=== PATIENT | male | born 1950 | race Caucasian/White ===

== ENCOUNTER 2017-08-11 11:14 | Outpatient (CLI) | payer MEDICARE ==
[~2017-08-11] VITALS: Ht 177.8 cm; Wt 102.3 kg
--- NOTE | ~2017-08-11 | HP ---
PATIENT: UBALDO VIGIL MEDICAL RECORD: [id number] ACCOUNT: [id number] LOCATION:BETH : 50 ADMISSION DATE: 08/11/17 HISTORY AND PHYSICAL EXAMINATION ADDENDUM A 67-year-old gentleman initially seen in the office, underwent nuclear stress testing that showed reversible inferior changes. He is being brought as an outpatient for angiography. Please see original H&P for full details. This is merely an update. He has had no change in symptomatology. He continues with dyspnea on exertion/angina. TRANSINT:[id number] Voice Confirmation ID: [id number] DOCUMENT ID: [id number] KATI CHAVES MD at 1318 CC: [id number] DICTATION DATE: 08/11/17 1328 CHEF DE FROID: 08/11/17 1350 DEP CLI 08/11/17 [id number] [place] [address]
--- NOTE | ~2017-08-11 | OP ---
PATIENT NAME: UBALDO VIGIL MEDICAL RECORD: [id number] :50 LOCATION:D.CAT ADMISSION DATE: SURGEON: KAIT CHAVES MD DATE OF OPERATION: 08/11/2017 PROCEDURE: Left heart catheterization, selective coronary angiography, right radial approach. CATHETERS: A 5-[place] sheath, 5/4 left and right Huber, 5/4 pig. The procedure was well tolerated and the patient returned to the perdomo, sheath removed, a TR band was placed. FINDINGS: Left ventriculography in 30-degree HINOJOSA view: Normal wall motion, normal systolic function. CORONARY ANATOMY. LEFT MAIN: Left main is free of disease. LAD: Free of disease in the diagonal system. CIRCUMFLEX: Free of disease in the marginal system. RIGHT CORONARY ARTERY: Dominant artery, gives rise to PDA, free of disease. IMPRESSION: Normal systolic function. Normal coronary anatomy. TRANSINT:[id number] Voice Confirmation ID: [id number] DOCUMENT ID: [id number] KAIT CHAVES MD at 1318 CC: [id number] DICTATION DATE: 08/11/17 1411 STEAM SHOVEL OPERATING ENGINEER: 08/11/17 1424 DEP CLI 08/11/17 [facility] [address] [place] [address]
--- NOTE | ~2017-08-11 | HEMODYNAMI ---
PATIENT:UBALDO VIGIL MEDICAL RECORD: [id number] : 50 LOCATION:DDEBI ADMISSION DATE: 08/11/17 Generatedon:08/11/201714:05 Patient name: UBALDO VIGIL Patient #: [id number] SSN: : 1950 Date of study: 08/11/2017 Page: Of Hemodynamic Procedure Report Patient Data Patient Demographics Procedure consent was obtained First Name: UBALDO Gender: Male Last Name: YARITZA : 1950 [facility] Initial: FRED Age: 67 year(s) Patient #: [id number] Race: Unknown Additional ID: [id number] Contact details [address]: [address] [place] [address] State: [place] City: [place] Zip code: [address] Past Medical History Allergies Allergen Reaction Date Comments Reported Iodine 08/11/2017 Admission Admission Data Admission Date: 08/11/2017 Admission Time: 11:14 Procedure Procedure Types Cath Procedure Diagnostic Procedure LHC LHC w/Coronaries Miscellaneous Procedures Moderate Sedation up to 15 minutes Procedure Description Procedure Date Procedure Date: 08/11/2017 Procedure Start Time: 13:56 Procedure End Time: 14:05 Procedure Staff Name Function Ramón Gutierrez MD Performing Physician Geno Peraza RT Monitor Ingrid Oneal RT Scrub Paul Snowden RN Nurse Procedure Data Cath Procedure Fluoroscopy Diagnostic fluoroscopy Total fluoroscopy Time: 1.7 time: 1.7 min min Diagnostic fluoroscopy Total fluoroscopy dose: 631 dose: 631 mGy mGy Contrast Material Contrast Material Type Amount (ml) Isovue 300 54 Entry Location Entry Primary Successful Side Size Upsize Upsize Entry Closure Daugherty ccessful Closure Location (Fr) 1 (Fr) 2 (Fr) Remarks Device Remarks Radial Right 6 Fr Mechanical artery Short Compression Estimated blood loss: 5 ml Diagnostic catheters Device Type Used For End Catheter Placement DIAGNOSTIC Gunlock 110cm 5 LV Angiography Fr catheter ([id number]) DIAGNOSTIC Gunlock 110cm 5 Left Coronary Fr catheter (797681) Angiography DIAGNOSTIC Gunlock 110cm 5 Right Coronary Fr catheter (986550) Angiography Procedure Complications No complications Procedure Medications Medication Administration Route Dosage 0.9% NaCl I.V. 100 ml/hr Oxygen NC 2 l/min Heparin Flush Bag added to field 2 bags (1000units/500ml NS) Lidocaine 2% 20 Radial Cocktail added to field (Verapomil 2mg/Nitro 400mcg/Heparin 1500units) Benadryl I.V. 50 mg Versed I.V. 1 mg Fentanyl I.V. 50 mcg Radial Cocktail I.A. (Verapomil 2mg/Nitro 400mcg/Heparin 1500units) Hemodynamics Rest Heart Rate: 90 (bpm) Pressure Samples Time Site Value (mmHg) Purpose Heart Use Rate(bpm) 13:59 LV 130/9,11 EDP 90 13:59 AO 127/81(103) Pullback 92 13:59 LV 126/11,14 Pullback 92 Gradients Valve Time Site 1 Site 2 Mean SEP/DFP Peak To Heart Use (mmHg) (sec/min) Peak Rate (mmHg) (bpm) Aortic 13:59 LV AO 0 7 0 92 126/11,14 127/81(103) Calculations Valve P-P Mean Valve Index Valve Source Name Gradient Area Flow (cm2) Aortic 0 0 0 0 Snapshots Pre Cath Intra NCS Post Cath Vital Signs Time Heart Resp SPO2 etCO2 NIBP (mmHg) Rhythm Pain Sedation Rate (ipm) (%) (mmHg) Status Level (bpm) 13:49:58 82 14 95 36.9 152/89(123) NSR 0 (11) 10(A) , No pain 13:54:41 84 13 94 35.4 150/83(121) NSR 0 (11) 10(A) , No pain 13:59:24 90 15 93 30.9 134/74(99) NSR 0 (11) 9(A) , No pain 14:04:02 93 16 93 30.1 132/79(97) NSR 0 (11) 9(A) , No pain Medications Time Medication Route Dose Verified Delivered Reason Notes Ef fectiveness by by 13:51:46 0.9% NaCl I.V. 100 Paul Paul Per ml/hr Sp luna RN RN 13:51:57 Oxygen NC 2 Paul Paul Per l/min Sp luna RN RN 13:52:09 Heparin Flush added 2 Paul Paul used for Bag to bags Sp Snowden procedure (1000units/500ml field RN RN NS) 13:52:18 Lidocaine 2% 20ml Paul Paul for local vial Sp Snowden anesthetic RN RN 13:52:28 Radial Cocktail added Paul Paul used for (Verapomil to Lorigan Lorigan procedure 2mg/Nitro field RN RN 400mcg/Heparin 1500units) 13:52:40 Benadryl I.V. 50 mg Paul Paul Per Sp Snowden physician RN RN 13:56:55 Versed I.V. 1 mg Paul Paul for sedation Sp Snowden RN RN 13:57:04 Fentanyl I.V. 50 Paul Paul for sedation mcg Sp Snowden RN RN 13:58:46 Radial Cocktail I.A. Paul Ramón for (Verapomil Lorigan [place] vasodilation 2mg/Nitro RN 400mcg/Heparin 1500units) Procedure Log Time Note 13:30:39 Paul Snowden RN sent for patient. Start room use. 13:37:45 Time tracking: Regular hours 13:37:48 Plan of Care:Hemodynamics will remain stable., Cardiac rhythm will remain stable., Comfort level will be maintained., Respiratory function will remain adequate., Patient/ family verbilizes understanding of procedure., Procedure tolerated without complication., Recovers from procedure without complications.. 13:37:56 Patient received from Pre/Post Procedure Room to CCL 1 Alert and oriented. Tansferred to table in Supine position. 13:37:56 Warm blankets applied, and emily hugger turned on for patient comfort. 13:37:57 Correct patient and procedure confirmed by team. 13:37:58 Signed procedure consent form obtained from patient. 13:37:58 ECG and BP/O2 sat monitors applied to patient. 13:38:01 Full Disclosure recording started 13:49:02 Vital chart was started 13:49:06 Rhythm: sinus rhythm 13:49:24 H&P Date Dictated: 08/11/2017 New H&P dictated by physician.. 13:49:51 Dictation # [id number] , [id number] 13:49:52 Pre-procedure instructions explained to patient. 13:49:52 Pre-op teaching completed and patient verbalized understanding. 13:49:59 Family in patients room. 13:50:00 Patient NPO since Midnight. 13:50:09 Patient allergic to Iodine 13:50:13 Is the patient allergic to Iodine/contrast media? Yes. 13:50:14 Was the patient premedicated? Yes 13:50:16 Is patient on blood thinner?No 13:50:18 Patient diabetic? No. 13:50:20 Previous problem with sedation/anesthesia? No ? 13:50:21 Snore? Yes 13:50:22 Sleep apnea? No 13:50:23 Deviated septum? No 13:50:23 Opens mouth fully? Yes 13:50:24 Sticks out tongue? No 13:50:26 Airway obstruction? No ? 13:50:27 Dentures? No ? 13:50:32 Pre procedure: right dorsailis pedis pulse 2+ Normal; easily identifiable; not easily obliterated 13:50:34 Modified Honorio's test Ulnar < 7 seconds 13:50:36 Patient pain scale 0/10 ?. 13:50:42 IV patent on arrival in left hand with 0.9% NaCl at [facility]. 13:50:49 Lab results completed and on chart. 13:50:53 Right Radial & Right Groin area was prepped with chlora-prep and draped in sterile fashion 13:50:53 Alarms reviewed by R. N. 13:50:54 Sharps counted by scrub and verified by R.N. 13:51:01 Use device set Radial Dx or PCI 13:51:03 ACIST Syringe (57198) opened to sterile field. 13:51:03 Medline Cath Pack ([id number]) opened to sterile field. 13:51:04 Bag Decanter (2002) opened to sterile field. 13:51:05 SHEATH 6FR Slender ([id number]) opened to sterile field. 13:51:05 DIAGNOSTIC WIRE .035 260cm J wire (668593) opened to sterile field. 13:51:06 ACIST Hand Control (42878) opened to sterile field. 13:51:06 ACIST Manifold (04703) opened to sterile field. 13:51:07 Tegaderm 4 x 4 (1626W) opened to sterile field. 13:51:08 MBrace Wrist Support ([id number]) opened to sterile field. 13:51:19 Final Timeout: patient, procedure, and site verified with staff and physician. All members of the team are in agreement. 13:51:21 Right Radial site verified by team. 13:51:23 Physical assessment completed. ASA score P 2 - A patient with mild systemic disease as per Ramón Gutierrez MD. 13:51:29 Sedation plan: IV Moderate Sedation Medication:Versed, Fentanyl 13:51:46 0.9% NaCl 100 ml/hr I.V. was administered by Paul Snowden RN; Per physician; 13:51:57 Oxygen 2 l/min NC was administered by Paul Snowden RN; Per physician; 13:52:09 Heparin Flush Bag (1000units/500ml NS) 2 bags added to field was administered by Paul Snowden RN; used for procedure; 13:52:18 Lidocaine 2% 20ml vial was administered by Paul Snowden RN; for local anesthetic; 13:52:28 Radial Cocktail (Verapomil 2mg/Nitro 400mcg/Heparin 1500units) added to field was administered by Paul Snowden RN; used for procedure; 13:52:40 Benadryl 50 mg I.V. was administered by Paul Snowden RN; Per physician; 13:56:44 Procedure started. 13:56:52 Local anesthetic to right radial artery with Lidocaine 2% by Ramón Gutierrez MD.INITIAL ACCESS ONLY 13:56:55 Versed 1 mg I.V. was administered by Paul Snowden RN; for sedation; 13:57:04 Fentanyl 50 mcg I.V. was administered by Paul Snowden RN; for sedation; 13:57:35 A 6 Fr Short sheath was inserted into the Right Radial artery 13:58:31 A DIAGNOSTIC Gunlock 110cm 5 Fr catheter ([id number]) was advanced over the wire and used for LV Angiography. 13:58:46 Radial Cocktail (Verapomil 2mg/Nitro 400mcg/Heparin 1500units) I.A. was administered by Ramón Gutierrez MD; for vasodilation; 13:59:23 LV gram done using HINOJOSA 13:59:25 LV hemodynamics recorded. 13:59:27 Injector settings: Ml/sec: 10, Volume: 20, 13:59:40 A DIAGNOSTIC Gunlock 110cm 5 Fr catheter (803136) was advanced over the wire and used for Left Coronary Angiography. 14:00:46 A DIAGNOSTIC Gunlock 110cm 5 Fr catheter (024421) was advanced over the wire and used for Right Coronary Angiography. 14:02:14 Catheter removed. 14:02:27 Sheath removed intact; hemostasis achieved with Mechanical Compression to the Right Radial artery. 14:02:29 Procedure ended.(Physican Out) 14:02:41 TR BAND Large ([id number]) opened to sterile field. 14:02:48 Fluoroscopy time 01.70 minutes. 14:02:51 Flurop Dose total: 631 14:02:51 Fluoroscopy dose: 631 mGy 14:02:56 Contrast amount:Isovue 300 54ml. 14:02:58 Sharps counted by scrub and verified by R.N. 14:03:23 TR band inflated with 11cc of air. 14:03:23 Insertion/operative site no bleeding no hematoma. 14:03:31 Post right radial artery:stable, clean and dry 14:03:32 Post Procedure Pulses reassessed and unchanged 14:03:37 Post-procedure physical assessment completed. ASA score P 2 - A patient with mild systemic disease as per Ramón Gutierrez MD. 14:03:41 Post procedure rhythm: unchanged. 14:03:43 Estimated blood loss: 5 ml 14:03:45 Post procedure instruction explained to patient.Patient verbalizes understanding. 14:03:45 Patient needs reinforcement of post procedure teaching. 14:03:58 Procedure Complication : No complications 14:04:01 See physician's report for complete and final results. 14:04:30 Procedure and supply charges have been captured, reviewed, submitted and are correct. 14:05:03 Vital chart was stopped 14:05:05 Report given to Pre/Post Procedure Room. 14:05:08 Patient transfered to Pre/Post Procedure Room with Stretcher. 14:05:17 Procedure ended. 14:05:17 Full Disclosure recording stopped 14:05:20 End room use (Document Last) Device Usage Item Name Manufacture Quantity Catalog Hospital Part Current Minima l Lot# / Number Charge Number Stock Stock Serial# Code ACIST Acist 1 58739 990432 539860 422700 20 Round the Mark Marketing (81826) Cyst[employer] Medline Cath Cardinal 1 [id number] 642342 60821 578548 5 Pack People Pattern ([id number]) Bag Decanter Microtek 1 2002S 524362 52052 805823 5 (2001S) Medical Inc. SHEATH 6FR Terumo 1 [id number] 288031 217528 380899 40 Slender ([id number]) DIAGNOSTIC St Geoffrey 1 069731 500002 350004 143880 30 WIRE .035 260cm J wire (804485) ACIST Hand Acist 1 36261 770740 335409 247595 5 Control Medical (31715) Systems Inc ACIST Acist 1 70164 679944 819464 651520 5 Manifold Medical (75654) Systems Inc Tegaderm 4 x 3M 1 1626W 117682 988829 195649 5 4 (1626W) MBrace Wrist Advanced 1 140-0250-00 276753 17002 971798 5 Support Vascular ([id number]) Dynamics DIAGNOSTIC Terumo 1 40-5869 926432 541260 292444 5 Gunlock 110cm 5 Fr catheter (997983) TR BAND Terumo 1 [id number] 296948 132544 388567 40 Large ([id number]) Signature Audit [place] Stage Time Signature Unsigned Intra-Procedure 08/11/2017 Geno 2:05:41 PM Counts RT(R) Signatures Monitor : Geno Signature : Counts RT Date : Time : [id number] [place] [address]
--- NOTE | ~2017-08-11 | HP ---
PATIENT: UBALDO VIGIL MEDICAL RECORD: [id number] ACCOUNT: [id number] LOCATION:BETH : 50 ADMISSION DATE: 08/11/17 HISTORY AND PHYSICAL EXAMINATION HISTORY: A 67-year-old gentleman with history of dyspnea on exertion, chest tightness, pressure and angina. He underwent Cardiolite stress testing in the office and found to have inferior reversible ischemia. He is being brought as outpatient for diagnostic angiography. PAST MEDICAL HISTORY: He has history of gastroesophageal reflux disease. ALLERGIES: IODINE. PHYSICAL EXAMINATION: GENERAL: Pleasant gentleman, in no acute distress. HEENT: Normocephalic, atraumatic. NECK: No JVD or bruit. HEART: Regular. LUNGS: Oneal are clear. ABDOMEN: Soft, nontender. EXTREMITIES: Pulse 2+. No edema. DIAGNOSTIC DATA: Nuclear stress test is abnormal as described above. IMPRESSION: Proceed with diagnostic angiography and intervention based on results. TRANSINT:[id number] Voice Confirmation ID: [id number] DOCUMENT ID: [id number] KAIT CHAVES MD at 1318 CC: [id number] DICTATION DATE: 08/11/17 1354 NEAR EASTERN ARCHAEOLOGY LECTURER: 08/11/17 1424 DEP CLI 08/11/17 [facility] [address] [place] [address]
[~2017-08-11 11:14] MED LIST: ZOCOR20 MG PO
[2017-08-11 12:17] VITALS: BP 160/96; Ht 177.8 cm; Wt 102.3 kg
[2017-08-11 12:29] LABS: BASOPHILS 0.1 % (0-2); EOSINOPHILS 0 % (0-7); HEMATOCRIT 50.2 % (42.0-54.0); HEMOGLOBIN 17.6 g/dL (13.5-17.5); LYMPHOCYTES 9.4 % (15-50); MCH 30.6 pg (26.0-34.0); MCHC 35.1 g/dL (31.0-37.0); MCV 87.3 fL (80.0-100.0); MEAN PLATELET VOLUME 11.6 fL (7.4-10.4); MONOCYTES 2.2 % (2-11); NEUTROPHILS 86.3 % (40-80); PLATELET COUNT 229 10x3/uL (130-400); RBC 5.75 10x6/uL (4.20-6.10); RDW 13.3 % (11.5-14.5); WBC 16.4 10x3/uL (4.8-10.8)
[2017-08-11 12:46] LABS: CALC OSMOLALITY 274 mosm/kg (275-300); CALCIUM 10.1 mg/dL (8.5-10.1); CHLORIDE - SERUM 100 mmol/L (98-107); GLUCOSE 136 mg/dL (74-106); POTASSIUM - SERUM 3.8 mmol/L (3.5-5.1); SODIUM 137 mmol/L (136-145); UREA NITROGEN 11 mg/dL (7-18); eGFR NON AFRICAN AMERICAN 79 mL/min (90-120)
== END 2017-08-11 16:06 | disposition home or self-care (01) ==
LOC: D.CATH 11:14
PROVIDERS: Internal Medicine Interventional Cardiology
DX: I20.9 Angina pectoris, unspecified (principal); K21.9 Gastro-esophageal reflux disease without esophagitis; R94.30 Abnormal result of cardiovascular function study, unspecified; R06.02 Shortness of breath; Z01.812 Encounter for preprocedural laboratory examination

== ENCOUNTER 2019-06-16 14:20 | Observation (INO) | payer MEDICARE ==
[~2019-06-16] VITALS: Ht 175.3 cm; Wt 109.3 kg
--- NOTE | 2019-06-16 14:30 | NUR ---
ASSESSMENT PER FLOW SHEET. PT IS WITHOUT DISTRESS.ORIENTATION TO ROOM.CALL LIGHT IN REACH.
[2019-06-16] MEDS ORDERED: AZELASTINE137 MCG/0. NASAL (15:45)
[2019-06-16] MEDS ORDERED: TRAZODONE HCL150 MG PO (15:46)
[2019-06-16] MEDS ORDERED: LIPITOR20 MG PO (15:46)
[2019-06-16] MEDS ORDERED: ROBAXIN500 MG PO (15:48)
[2019-06-16] MEDS ORDERED: FISH OIL 1,0001 CA1 PO (15:49)
[2019-06-16] MEDS ORDERED: OMEPRAZOLE20 M1 PO (15:50)
[2019-06-16 15:54] LABS: BASOPHILS 0.1 % (0-2); EOSINOPHILS 0.1 % (0-7); HEMATOCRIT 47.4 % (42.0-54.0); HEMOGLOBIN 16.2 g/dL (13.5-17.5); IMMATURE GRANULOCYTES 0.3 % (0-5); MCH 30.5 pg (26.0-34.0); MCHC 34.2 g/dL (31.0-37.0); MCV 89.3 fL (80.0-100.0); MEAN PLATELET VOLUME 11.3 fL (7.4-10.4); NEUTROPHILS 85.5 % (40-80); RBC 5.31 10x6/uL (4.20-6.10); RDW 14.8 % (11.5-14.5); WBC 14.3 10x3/uL (4.8-10.8)
[2019-06-16 16:07] LABS: ALBUMIN 3.3 g/dL (3.4-5.0); ALKALINE PHOSPHATASE 169 U/L (46-116); ALT (SGPT) 172 U/L (10-68); AMYLASE - SERUM 18 U/L (25-115); BILIRUBIN - TOTAL 5.28 mg/dL (0.2-1.3); CALC OSMOLALITY 280 mosm/kg (275-300); CALCIUM 8.8 mg/dL (8.5-10.1); CARBON DIOXIDE 22.4 mmol/L (21.0-32.0); CHLORIDE - SERUM 105 mmol/L (98-107); CREATININE - SERUM 0.9 mg/dL (0.6-1.3); GLUCOSE 97 mg/dL (74-106); POTASSIUM - SERUM 3.6 mmol/L (3.5-5.1); PROTEIN - SERUM 6.3 g/dL (6.4-8.2); SODIUM 139 mmol/L (136-145); UREA NITROGEN 22 mg/dL (7-18); eGFR NON AFRICAN AMERICAN 89 mL/min (90-120)
[2019-06-16 16:08] LABS: LIPASE 46 U/L (73-393)
[2019-06-16 16:23] LABS: PLATELET COUNT 151 10x3/uL (130-400)
[2019-06-16 16:32] VITALS: BMI 35.6
[2019-06-16 16:44] VITALS: BP 112/57
[2019-06-16 19:43] LABS: APPEARANCE CLEAR (CLEAR); BILIRUBIN 2+ (NEGATIVE); COLOR DK YELLOW (YELLOW); GLUCOSE NEGATIVE (NEGATIVE); KETONE MODERATE mg/dL (NEGATIVE); NITRITE NEGATIVE (NEGATIVE); PROTEIN NEGATIVE (NEGATIVE); UROBILINOGEN NORMAL (NORMAL)
--- NOTE | 2019-06-16 20:44 | NUR ---
PT C/O BEING HUNGRY, SAYS HE HASN'T ATE IN 4 DAYS. CALLED PATRICIA GAYTAN. RECEIVED ORDER FOR PT TO HAVE LOW RESIDUE DIET UNTIL MIDNIGHT, PT IS TO HAVE ULTRASOUND TOMORROW. PT REQUESTED SOUP AND SANDWICH. PT TOLERATED WELL. NO OTHER NEEDS. WILL CONTINUE TO MONITOR.
[2019-06-16 21:02] VITALS: BP 107/61
[2019-06-17 01:20] VITALS: BP 153/62
[2019-06-17 05:52] VITALS: BP 126/51
[2019-06-17 06:24] LABS: BASOPHILS 0.1 % (0-2); EOSINOPHILS 0.7 % (0-7); HEMATOCRIT 43.8 % (42.0-54.0); HEMOGLOBIN 14.7 g/dL (13.5-17.5); IMMATURE GRANULOCYTES 0.3 % (0-5); LYMPHOCYTES 9.3 % (15-50); MCH 30.2 pg (26.0-34.0); MCHC 33.6 g/dL (31.0-37.0); MCV 90.1 fL (80.0-100.0); MEAN PLATELET VOLUME 12.5 fL (7.4-10.4); MONOCYTES 7.4 % (2-11); NEUTROPHILS 82.2 % (40-80); PLATELET COUNT 149 10x3/uL (130-400); RBC 4.86 10x6/uL (4.20-6.10)
[2019-06-17 06:53] LABS: ALBUMIN 2.6 g/dL (3.4-5.0); ALKALINE PHOSPHATASE 153 U/L (46-116); ALT (SGPT) 126 U/L (10-68); BILIRUBIN - TOTAL 3.74 mg/dL (0.2-1.3); CALC OSMOLALITY 284 mosm/kg (275-300); CARBON DIOXIDE 23.9 mmol/L (21.0-32.0); CHLORIDE - SERUM 108 mmol/L (98-107); CREATININE - SERUM 0.9 mg/dL (0.6-1.3); GLUCOSE 91 mg/dL (74-106); POTASSIUM - SERUM 3.7 mmol/L (3.5-5.1); PROTEIN - SERUM 5.2 g/dL (6.4-8.2); SODIUM 142 mmol/L (136-145); UREA NITROGEN 18 mg/dL (7-18); eGFR NON AFRICAN AMERICAN 89 mL/min (90-120)
--- NOTE | 2019-06-17 08:00 | NUR ---
ASSESSMENT PER FLOW SHEET. PT IS WITHOUT DISTRESS.MONITOR FOR NEEDS.
[2019-06-17 08:46] VITALS: Ht 175.3 cm; Wt 109.3 kg
[2019-06-17 08:56] VITALS: BP 118/59
[2019-06-17] MEDS ORDERED: LEVAQUIN750 MG PO (12:20)
[2019-06-17] MEDS ORDERED: FLAGYL500 MG PO (12:20)
--- NOTE | 2019-06-17 12:30 | NUR ---
IV DCD WITH CATH TIP INTACT. PT WILL DC TODAY.REG DIET FOR LUNCH
--- NOTE | 2019-06-17 13:18 | NUR ---
dischsrge instructions,states understanding.refused wheelchair. walked to er by tommie montes. pt ride is here
[2019-06-20 19:08] LABS: HEPATITIS C ANTIBODY <0.1 S/CO RAT (0.0-0.9)
== END 2019-06-17 13:19 | disposition home or self-care (01) ==
LOC: UNDOADMIN 14:20 → D.MS 14:20 → OBSVTIME 14:20 → D.MS 14:20 → EDSTATUS 06-22 14:53
PROVIDERS: Internal Medicine Nephrology; ADMIT Family Medicine; ATTEND Family Medicine
DX: K80.80 Other cholelithiasis without obstruction (principal); K82.4 Cholesterolosis of gallbladder; K76.0 Fatty (change of) liver, not elsewhere classified; E78.5 Hyperlipidemia, unspecified; K21.9 Gastro-esophageal reflux disease without esophagitis; R74.0 Nonspecific elevation of levels of transaminase and lactic acid dehydrogenase [LDH]; E80.7 Disorder of bilirubin metabolism, unspecified

== ENCOUNTER 2020-01-19 10:19 | Emergency (ER) | payer MEDICARE ==
[~2020-01-19] VITALS: Ht 175.3 cm; Wt 97.7 kg
[~2020-01-19 10:19] MED LIST changes: +AZELASTINE137 MCG/0. NASAL; +FISH OIL 1,0001 CA1 PO; +FLAGYL500 MG PO; +LEVAQUIN750 MG PO; +LIPITOR20 MG PO; +OMEPRAZOLE20 M1 PO; +ROBAXIN500 MG PO; +TRAZODONE HCL150 MG PO
[2020-01-19 10:26] VITALS: Ht 175.3 cm; Wt 97.7 kg
[2020-01-19] MEDS ORDERED: LIPITOR40 MG PO (10:28)
[2020-01-19 10:47] LABS: BASOPHILS 0.2 % (0-2); EOSINOPHILS 0.3 % (0-7); HEMATOCRIT 45.5 % (42.0-54.0); HEMOGLOBIN 14.8 g/dL (13.5-17.5); IMMATURE GRANULOCYTES 0.5 % (0-5); LYMPHOCYTES 6.5 % (15-50); MCHC 32.5 g/dL (31.0-37.0); MCV 89.2 fL (80.0-100.0); MEAN PLATELET VOLUME 11.3 fL (7.4-10.4); MONOCYTES 9.2 % (2-11); NEUTROPHILS 83.3 % (40-80); PLATELET COUNT 241 10x3/uL (130-400); RDW 13.7 % (11.5-14.5); WBC 11.5 10x3/uL (4.8-10.8)
[2020-01-19 10:56] LABS: CALC OSMOLALITY 274 mosm/kg (275-300); CALCIUM 9.1 mg/dL (8.5-10.1); CARBON DIOXIDE 26.9 mmol/L (21.0-32.0); CHLORIDE - SERUM 102 mmol/L (98-107); CREATININE - SERUM 1.1 mg/dL (0.6-1.3); GLUCOSE 179 mg/dL (74-106); POTASSIUM - SERUM 3.9 mmol/L (3.5-5.1); SODIUM 135 mmol/L (136-145); UREA NITROGEN 14 mg/dL (7-18); eGFR NON AFRICAN AMERICAN 70 mL/min (90-120)
[2020-01-19 11:05] LABS: ALBUMIN 2.9 g/dL (3.4-5.0); ALKALINE PHOSPHATASE 677 U/L (30-120); ALT (SGPT) 299 U/L (10-68); AMYLASE - SERUM 20 U/L (25-115); BILIRUBIN - TOTAL 8.07 mg/dL (0.2-1.3); PROTEIN - SERUM 6.7 g/dL (6.4-8.2); TROPONIN-I < 0.017 ng/mL (0.000-0.060)
[2020-01-19 11:13] LABS: LIPASE 45 U/L (73-393)
[2020-01-19 14:04] LABS: BACTERIA FEW /hpf (NEGATIVE); EPITHELIAL CELLS 0-5 /hpf (0-5); RED CELLS - URINE 0-5 /hpf (0-5); WHITE CELLS - URINE OCC /hpf (NEGATIVE)
[2020-01-19 14:05] VITALS: BP 118/63
== END 2020-01-19 14:06 | disposition other institution (70) ==
LOC: D.ER 10:19
PROVIDERS: Family Medicine
DX: R10.9 Unspecified abdominal pain (principal); R74.8 Abnormal levels of other serum enzymes; K80.20 Calculus of gallbladder without cholecystitis without obstruction; R17 Unspecified jaundice; R11.0 Nausea

== ENCOUNTER 2020-12-10 05:13 | Day surgery (SDC) | payer MEDICARE ==
[~2020-12-10] VITALS: Ht 175.3 cm; Wt 107.5 kg
[~2020-12-10 05:13] MED LIST changes: +LIPITOR40 MG PO
[2020-12-10 05:33] LABS: BASOPHILS 0.6 % (0-2); HEMATOCRIT 46.8 % (42.0-54.0); HEMOGLOBIN 15.9 g/dL (13.5-17.5); IMMATURE GRANULOCYTES 1.4 % (0-5); LYMPHOCYTE ABS# 2.02 10x3/uL (1.32-3.57); LYMPHOCYTES 24.1 % (15-50); MCH 30.3 pg (26.0-34.0); MCV 89.1 fL (80.0-100.0); MONOCYTES 8.5 % (2-11); NEUTROPHIL ABS# 5.24 10x3/uL (1.78-5.38); NEUTROPHILS 62.4 % (40-80); PLATELET COUNT 203 10x3/uL (130-400); RBC 5.25 10x6/uL (4.20-6.10); RDW 13.7 % (11.5-14.5); WBC 8.4 10x3/uL (4.8-10.8)
[2020-12-10 06:04] LABS: CALC OSMOLALITY 279 mosm/kg (275-300); CALCIUM 9.1 mg/dL (8.5-10.1); CARBON DIOXIDE 25.1 mmol/L (21.0-32.0); CHLORIDE - SERUM 106 mmol/L (98-107); GLUCOSE 133 mg/dL (74-106); SODIUM 140 mmol/L (136-145); UREA NITROGEN 10 mg/dL (7-18); eGFR NON AFRICAN AMERICAN 78 mL/min (90-120)
[2020-12-10 06:26] VITALS: BP 146/88; Ht 175.3 cm; Wt 107.5 kg
[2020-12-10] MEDS ORDERED: HYDROCODON-ACE1 EA10 PO (12:35)
--- NOTE | 2020-12-10 15:08 | NUR ---
PATIENT REQUESTED SOMETHING FOR PAIN IN HIS RIGHT INGUINAL SURGICAL SITE. SCALED AT 8 ON 1/10 SCALE. HYDROCODONE 10/325 GIVEN ORALLY FOR PAIN RELIEF.
--- NOTE | 2020-12-10 15:10 | NUR ---
0960 PATIENT VOICES SOME PAIN RELIEF AFTER TAKING ORAL PAIN MED. PAIN DOWN TO 5 ON 1/10 SCALE. WILL CONTINUE TO MONITOR. PATIENT UP TO BATHROOM BUT STILL UNABLE TO VOID.
--- NOTE | 2020-12-10 16:13 | NUR ---
PATIENT UP TO BATHROOM. VOIDED SMALL AMOUNT. BLADDER SCAN DONE TO DETERMINE IF PATIENT VOIDED ENOUGH TO DISCHARGE TO HOME. 84ML IN BLADDER AFTER VOID. IV D/C'D WITH TIP INTACT.
--- NOTE | 2020-12-10 16:14 | NUR ---
PATIENT DRESSED FOR DISCHARGE. INSTRUCTIONS GIVEN WITH UNDERSTANDING VOICED BY PATIENT.
--- NOTE | 2020-12-12 14:18 | OP ---
PATIENT NAME: UBALDO VIGIL MEDICAL RECORD: [id number] :50 LOCATION:D.OPS ADMISSION DATE: SURGEON: KENNETH SIRERA MD DATE OF OPERATION: 12/10/2020 PREOPERATIVE DIAGNOSES: 1. Recurrent right inguinal hernia. 2. Hypercholesterolemia. POSTOPERATIVE DIAGNOSES: 1. Recurrent right inguinal hernia. 2. Hypercholesterolemia. PROCEDURE: Right inguinal hernia repair with medium PHS mesh. SURGEON: Kenneth Sierra MD DESCRIPTION OF PROCEDURE: The patient's right groin was prepped and draped in sterile fashion. An oblique incision was made just above the inguinal ligament. Electrocautery was used to dissect through the subcutaneous tissues to the external oblique fascia. This fascia was opened up to the external ring using electrocautery. The patient's spermatic cord was found and a [place] was placed around it. The patient had a large fat-containing hernia defect, which was a direct defect. The defect itself was about a centimeter and a half in size and the fatty tissue was not able to be reduced through this. I was able to extend this hernia defect a little bit medially using electrocautery and at this point I was able to reduce the hernia defect back into the abdominal cavity. The patient's ilioinguinal nerve was found and high ligated. I then opened up the preperitoneal space of Retzius through the hernia opening and inserted a medium PHS mesh. This was sutured down on all 4 sides using multiple interrupted 0 Vicryls. We irrigated out the wound and assured there was no sign of any bleeding. The external oblique fascia was then closed with a running 2-0 Vicryl. The subcutaneous tissues were closed with interrupted 3-0 Vicryl and the skin was closed with running subcutaneous 5-0 Monocryl. A 10 mL of 0.25% Marcaine with epinephrine was infused into the surrounding tissues and the wound was dressed appropriately. COMPLICATIONS: None. CONDITION: Stable. ANESTHESIA: General endotracheal and local. BLOOD LOSS: Minimal. TRANSINT:[id number] Voice Confirmation ID: [id number] DOCUMENT ID: [id number] OPERATIVE REPORT [id number] UBALDO VIGIL KENNETH SIERRA MD at 1418 CC: AGNIESZKA PATTERSON MD [id number] DICTATION DATE: 12/10/20 2946 CLAY ARTISAN: 12/10/20 1535 [facility] 12/10/[id number] [facility] [place] [address]
== END 2020-12-10 16:36 | disposition home or self-care (01) ==
LOC: D.OPS 05:13
PROVIDERS: ATTEND Surgery
DX: K40.91 Unilateral inguinal hernia, without obstruction or gangrene, recurrent (principal); E78.00 Pure hypercholesterolemia, unspecified